=== PATIENT | male | born 1960 | race Caucasian/White ===

== ENCOUNTER → 2017-12-25 | Day surgery (SDC) | payer OTHER ==
[~2017-12-25] VITALS: Ht 182.8 cm; Wt 93.0 kg
[~2017-12-25] MED LIST: ALLOPURINOL300 MG PO; COLACE100 MG PO; EPI EZ PEN1 MG/ML IM; LEVOTHYROXINE100 MC1 PO; LISINOPRIL10 M1 PO; LISINOPRIL2.5 MG PO; MEDROL DOSEPAK4 MG PO; NORCO 5-325 TA1 EACH PO; SYNTHROID0.025 MG PO
[2017-12-25 07:23] VITALS: BP 157/95
[2017-12-25 08:40] VITALS: BP 137/85
[2017-12-25 08:55] VITALS: BP 133/90
[2017-12-25 09:15] VITALS: BP 134/92
== END | disposition home or self-care (01) ==
LOC: SDC 12-15 15:30
DX: K62.1 Rectal polyp (principal); K57.30 Diverticulosis of large intestine without perforation or abscess without bleeding; I10 Essential (primary) hypertension; K21.9 Gastro-esophageal reflux disease without esophagitis; E03.9 Hypothyroidism, unspecified; M10.9 Gout, unspecified; Z90.49 Acquired absence of other specified parts of digestive tract; Z98.890 Other specified postprocedural states; Z91.030 Bee allergy status; Z87.891 Personal history of nicotine dependence; Z79.899 Other long term (current) drug therapy; Z80.9 Family history of malignant neoplasm, unspecified

== ENCOUNTER → 2018-05-06 | Outpatient (CLI) | payer OTHER ==
[~2018-05-06] MED LIST changes: +CEPHALEXIN500 M1 PO
[2018-05-06 14:53] LABS: ALBUMIN 3.2 gm/dl (3.1-4.5); ALKALINE PHOSPHATASE 76 U/L (45-117); BUN 11 mg/dl (7-24); CHLORIDE 103 mmol/L (98-107); CREATININE 1.29 mg/dL (0.70-1.30); POTASSIUM 3.9 mmol/L (3.5-5.1); SGOT/AST 27 IU/L (3-35); SGPT/ALT 53 U/L (12-78); SODIUM 140 mmol/L (136-145); TOTAL PROTEIN 6.9 gm/dL (6.4-8.2); URIC ACID 4.8 mg/dL (3.5-7.2)
== END | disposition home or self-care (01) ==
LOC: LAB 13:58
PROVIDERS: Nurse Practitioner Family
DX: I10 Essential (primary) hypertension (principal); M1A.9XX0 Chronic gout, unspecified, without tophus (tophi); R94.4 Abnormal results of kidney function studies

== ENCOUNTER 2018-06-01 15:31 | Emergency (ER) | payer OTHER ==
[~2018-06-01] VITALS: Ht 182.8 cm; Wt 93.0 kg
[~2018-06-01 15:31] MED LIST changes: -CEPHALEXIN500 M1 PO
[2018-06-01] MEDS ORDERED: CEPHALEXIN500 M1 PO (16:21)
== END 2018-06-01 18:10 | disposition home or self-care (01) ==
LOC: ED 15:31
DX: S01.81XA Laceration without foreign body of other part of head, initial encounter (principal); Z91.030 Bee allergy status; Z79.899 Other long term (current) drug therapy; Z90.49 Acquired absence of other specified parts of digestive tract; W26.8XXA Contact with other sharp object(s), not elsewhere classified, initial encounter; Y93.89 Activity, other specified; Y92.89 Other specified places as the place of occurrence of the external cause; Y99.8 Other external cause status

== ENCOUNTER 2019-04-04 15:24 | Emergency (ER) | payer OTHER ==
[~2019-04-04] VITALS: Ht 182.8 cm; Wt 93.0 kg
[~2019-04-04 15:24] MED LIST changes: +CEPHALEXIN500 M1 PO
[2019-04-04 15:59] LABS: BASO # 0.1 10*3/uL (0.0-0.1); BASO % 0.9 % (0.0-1.0); EOS # 0.2 10*3/uL (0.0-0.4); HEMATOCRIT 42.2 % (42.0-52.0); HEMOGLOBIN 14.7 g/dl (14.0-18.0); LYMPH # 2.7 10*3/uL (1.3-4.4); LYMPH % 34.9 % (27.0-41.0); MEAN CELL VOLUME 96.3 fl (80.0-94.0); MEAN CORPUSCULAR HGB 33.6 pg (27.0-31.0); MEAN CORPUSCULAR HGB CONC 34.8 g/dl (33.0-37.0); MEAN PLATELET VOLUME 9.4 fl (9.6-12.3); MONO # 0.6 10*3/uL (0.1-1.0); MONO % 7.3 % (3.0-9.0); NEUT # 4.1 10*3/uL (2.3-7.9); NEUT % 53.6 % (47.0-73.0); PLATELET COUNT AUTOMATED 290 10*3/uL (130-400); RED BLOOD COUNT 4.38 10*6/uL (4.50-5.90); RED CELL DISTRI WIDTH 12.8 % (0-14.5); WHITE BLOOD COUNT 7.6 10*3/uL (4.8-10.8)
[2019-04-04 16:10] LABS: ACT PARTIAL THROMBO TIME 26.5 SECONDS (20.0-32.1)
[2019-04-04 16:17] LABS: ALBUMIN 3.8 gm/dl (3.1-4.5); ALKALINE PHOSPHATASE 98 U/L (45-117); BUN 11 mg/dl (7-24); CHLORIDE 105 mmol/L (98-107); POTASSIUM 3.7 mmol/L (3.5-5.1); SGOT/AST 28 IU/L (3-35); SGPT/ALT 53 U/L (12-78); SODIUM 140 mmol/L (136-145); TOTAL PROTEIN 7.5 gm/dL (6.4-8.2)
[2019-04-04 16:28] LABS: TROPONIN I < 0.015 ng/ml (<0.045)
[2019-04-04] MEDS ORDERED: METHOCARBAMOL500 M1 PO (19:37)
[2019-04-04] MEDS ORDERED: MEDROL DOSEPAK4 MG PO (19:37)
== END 2019-04-04 19:48 | disposition home or self-care (01) ==
LOC: ED 15:24
PROVIDERS: Nurse Practitioner Family
DX: S29.011A Strain of muscle and tendon of front wall of thorax, initial encounter (principal); I10 Essential (primary) hypertension; E78.5 Hyperlipidemia, unspecified; Z98.890 Other specified postprocedural states; Z79.899 Other long term (current) drug therapy; Z91.030 Bee allergy status; X50.1XXA Overexertion from prolonged static or awkward postures, initial encounter; Y93.89 Activity, other specified; Y92.89 Other specified places as the place of occurrence of the external cause; Y99.9 Unspecified external cause status

== ENCOUNTER → 2024-06-11 | Outpatient (CLI) | payer OTHER ==
[~2024-06-11] MED LIST changes: +METHOCARBAMOL500 M1 PO
== END | disposition home or self-care (01) ==
LOC: RAD 09:46
PROVIDERS: ATTEND Nurse Practitioner Primary Care
DX: M54.9 Dorsalgia, unspecified (principal)

== ENCOUNTER → 2024-08-06 | Outpatient (CLI) | payer OTHER | END | disposition home or self-care (01) | LOC: RAD 15:22 | PROVIDERS: ATTEND Chiropractor Orthopedic | DX: M99.03 Segmental and somatic dysfunction of lumbar region (principal); M54.50 Low back pain, unspecified ==